=== PATIENT | female | born 1970 | race American Indian/Alaskan Native ===

== ENCOUNTER 2017-01-24 10:39 | Outpatient (CLI) | payer MEDICAID ==
--- NOTE | 2017-01-24 13:57 | Ultrasound Report ---
ULTRASOUND TRANSVAGINAL HISTORY: Disorder of the urethra FINDINGS: Transvaginal ultrasound was performed. This patient was originally scheduled for a voiding cystourethrogram. The Cueva catheter could not be placed through the urethra. The urethra is not visible on transvaginal ultrasound. No large diverticulum or mass is detected on the ultrasound images. The uterus is anteverted and measures 11 x 6 x 8 cm. No fibroids are identified. The endometrial stripe measures 6 mm. An IUD is in place. The right ovary measures 2.5 x 1.9 x 3.1 cm. A 1.4 cm right ovarian cyst is identified. The left ovary measures 4.1 x 2.5 x 4.8 cm. A 2.8 cm left ovarian cyst is identified. IMPRESSION: The urethra is not visualized. See above. Mildly enlarged uterus containing an intrauterine device. Bilateral renal cysts.
--- NOTE | 2017-01-24 13:59 | XRay Report ---
AP pelvis History: Pelvic pain, disorder of urethra. Findings: This examination was scheduled as a voiding cystourethrogram. Multiple attempts at placing a Cueva catheter for the examination failed. There appears to be a urethral diverticulum or other abnormality preventing catheter placement. An IUD is noted in the pelvis. No bony abnormality is detected. Impression: Unremarkable pelvis. Failed attempt at placing Cueva catheter as described.
== END 2017-01-24 10:40 | disposition home or self-care (01) ==
LOC: US 10:39
PROVIDERS: ATTEND Urology
DX: N83.201 Unspecified ovarian cyst, right side (principal); N83.202 Unspecified ovarian cyst, left side; N85.4 Malposition of uterus; N85.2 Hypertrophy of uterus; N36.8 Other specified disorders of urethra; Z97.5 Presence of (intrauterine) contraceptive device
CPT/HCPCS: 72170; 76830; C1769; Q9965

== ENCOUNTER 2019-01-19 08:57 | Outpatient (CLI) | payer MEDICAID ==
--- NOTE | 2019-01-19 10:05 | XRay Report ---
ROUTINE CHEST, TWO VIEWS: SOB. PA and lateral views demonstrate the heart and mediastinal contour to be of normal size and shape. The lungs are clear and fully expanded and the soft tissues and bony structures are normal. There is a lower cervical plate. IMPRESSION: Normal study.
--- NOTE | 2019-01-19 10:23 | Vascular Lab Report ---
PROCEDURE: VL VENOUS DUPLEX LE BILAT TECHNIQUE: Grayscale, color flow and spectral waveform images were obtained of bilateral lower extre mities. HISTORY: LEG PAIN COMPARISON: None FINDINGS: There is no deep venous thrombosis seen in the left or right lower extremity. Flow is demonstrated by color flow and spectral waveform imaging. There is appropriate wall compression and augmentation. There is also no evidence of superficial venous thrombus. IMPRESSION: There is no evidence for DVT in either right or left lower extremity. This document is electronically signed by Jaclyn Street MD., January 19 2019 10:20:49 AM ET
--- NOTE | 2019-01-19 10:42 | Nuclear Medicine Report ---
LUNG SCAN, VENTILATION AND PERFUSION: History: Shortness of breath. Technique: 5mci of Tc99m MAA was infused for the perfusion images. 15mci XE 133 gas was inhaled for the ventilatory images. Correlation is made with a chest x-ray dated 01/19/19. Findings: Inhalation of Xenon gas demonstrates a normal distribution of the activity throughout both lungs. The wash out phases show no focal retention of activity. After injection of Technetium 99m macroaggregated albumin gamma camera imaging of the lungs in multiple projections demonstrates normal pulmonary contours with a homogeneous distribution of activity. No focal areas of perfusion deficiency are identified. IMPRESSION: Low probability for pulmonary embolus.
== END 2019-01-19 08:58 | disposition home or self-care (01) ==
LOC: NM 08:57
PROVIDERS: ATTEND Internal Medicine
DX: J44.9 Chronic obstructive pulmonary disease, unspecified (principal); M79.604 Pain in right leg; M79.605 Pain in left leg
CPT/HCPCS: 36415; 36600; 71046; 78582; 82803; 85379; 93970; A9540; A9558

== ENCOUNTER 2021-02-15 10:45 | Outpatient (CLI) | payer MEDICAID ==
--- NOTE | 2021-02-15 12:55 | Magnetic Resonance Report ---
MR PELVIS WITHOUT CONTRAST HISTORY: Painful urination COMPARISON: None. TECHNIQUE: Routine non-contrast MRI of the pelvis obtained. CONTRAST: None. FINDINGS: Uterus: Anteverted and normal in size with normal configuration. Myometrium: Normal. Junctional zone: Normal thickness. Endometrium: Normal contour with maximum thickness 0.6 cm. An IUD appears in good position in the en dometrial canal. Cervix: No significant abnormality. Vagina: No significant abnormality. Right ovary: No significant abnormality. Left ovary:A 4.4 x 3.4 x 2.8 cm simple left ovarian cyst is identified. Lymphatics: No lymphadenopathy. Bowel: No significant abnormality. Urinary Bladder: The bladder is mostly empty but there is no evidence for filling defect or wall thic [place]. The urethra is unremarkable. Fluid: No ascites. Bone Marrow: No significant abnormality. Muscles: No significant abnormality. Subcutaneous soft tissues: No significant abnormality. Additional Findings: None. IMPRESSION: 4.4 cm left ovarian cyst, otherwise, unremarkable exam. The bladder is mostly empty but grossly unremarkable. No clear explanation for pain for urination. Signer Name: Derek Calabrese Jr, MD Signed: 02/15/2021 12:50 PM Workstation Name: [id number]
== END 2021-02-15 10:46 | disposition home or self-care (01) ==
LOC: MRI 10:45
PROVIDERS: ATTEND Urology
DX: N83.292 Other ovarian cyst, left side (principal); R30.9 Painful micturition, unspecified
CPT/HCPCS: 72195

== ENCOUNTER 2022-04-11 10:57 | Emergency (ER) | payer MEDICAID ==
[2022-04-11 11:06] VITALS: BP 143/91
[2022-04-11 12:06] LABS: Basophils # (Auto) 0.1 K/mm3 (0.0-0.1); Basophils % (Auto) 0.9 % (0.0-1.8); Eosinophils # (Auto) 0.2 K/mm3 (0.0-0.4); Eosinophils % (Auto) 1.2 % (0.0-4.3); Hematocrit 49.8 % (30.3-42.9); Hemoglobin 15.8 gm/dl (10.1-14.3); Lymphocytes # (Auto) 3.9 K/mm3 (1.2-5.4); Lymphocytes % (Auto) 28.8 % (13.4-35.0); Mean Corpuscular HGB Conc 32 % (30-34); Mean Corpuscular Volume 80 fl (79-97); Monocytes # (Auto) 0.7 K/mm3 (0.0-0.8); Monocytes % (Auto) 5.4 % (0.0-7.3); Platelet Count 267 K/mm3 (140-440); Red Blood Count 6.26 M/mm3 (3.65-5.03); Red Cell Distribution Width 15.2 % (13.2-15.2)
[2022-04-11 12:13] LABS: INR 0.91 (0.87-1.13)
[2022-04-11 12:14] LABS: Partial Thromboplastin Time 29.7 Sec. (24.2-36.6)
--- NOTE | 2022-04-11 12:19 | XRay Report ---
XR chest routine 2V INDICATION / CLINICAL INFORMATION: Chest Pain. COMPARISON: 01/19/2019 FINDINGS: SUPPORT DEVICES: None. HEART /PULMONARY VASCULATURE: No significant abnormality. LUNGS / PLEURA: No significant pulmonary or pleural abnormality. No pneumothorax. ADDITIONAL FINDINGS: No significant additional findings. IMPRESSION: 1. No acute findings. Signer Name: Renny Hoskins MD Signed: 04/11/2022 12:15 PM Workstation Name: [id number]
[2022-04-11 12:31] LABS: Alanine Aminotransferase 15 units/L (7-56); Albumin 3.9 g/dL (3.9-5); Blood Urea Nitrogen 13 mg/dL (7-17); Calcium 8.7 mg/dL (8.4-10.2); Hemolysis Index 18
[2022-04-11 12:50] LABS: BUN/Creatinine Ratio 22
--- NOTE | 2022-04-12 17:35 | Electrocardiograph Report ---
[facility] Test Date: 2022-04-11 Test Time: 11:10:50 Pat Name: HEATH VENTURA Department: Room: Gender: F [place] Worker: ARMANDO : 1970 Requested By: ED DOC Order Number: [id number] Reading MD: Kal Casillas Measurements Intervals [place] Rate: 127 P: 53 VA: 135 QRS: 47 QRSD: 67 T: 58 QT: 310 QTc: 451 Interpretive Statements Sinus tachycardia LAE, consider biatrial enlargement Probable anteroseptal infarct, old No previous ECG available for comparison Electronically Signed On 04-12-2022 17:34:25 EDT by Kal Casillas
== END 2022-04-12 05:00 | disposition left against medical advice (07) ==
LOC: ED 10:57
DX: R07.89 Other chest pain (principal); R06.02 Shortness of breath; Z53.21 Procedure and treatment not carried out due to patient leaving prior to being seen by health care provider
CPT/HCPCS: 36415; 71046; 80053; 84484; 85025; 85610; 85730; 93005